=== PATIENT | female | born 1980 | race Caucasian/White ===

== ENCOUNTER 2016-10-30 18:04 | Emergency (ER) | payer MEDICAID ==
[~2016-10-30] VITALS: Ht 162.6 cm; Wt 73.8 kg
[2016-10-30 18:19] VITALS: BP 109/77
[2016-10-30] MEDS ORDERED: FLUORESCEIN OPHTHALMIC 1 MG STRIP ONE (18:46)
[2016-10-30] MEDS ORDERED: PROPARACAINE OPHTH 0.5%, 15ML ONE (18:46)
[2016-10-30] MEDS ORDERED: FLUORESCEIN OPHTHALMIC 1 MG STRIP RIGHTEYE ONE (19:00)
[2016-10-30] MEDS ORDERED: PROPARACAINE OPHTH 0.5%, 15ML RIGHTEYE ONE (19:00)
== END 2016-10-30 19:29 | disposition home or self-care (01) ==
LOC: ED 19:23
DX: H10.021 Other mucopurulent conjunctivitis, right eye (principal); H57.11 Ocular pain, right eye; F17.200 Nicotine dependence, unspecified, uncomplicated
CPT/HCPCS: 99283

== ENCOUNTER 2016-10-31 18:44 | Emergency (ER) | payer MEDICAID ==
[~2016-10-31] VITALS: Ht 160 cm; Wt 73.1 kg
[2016-10-31 18:52] VITALS: BP 120/83
== END 2016-10-31 19:35 | disposition left against medical advice (07) ==
LOC: ED 19:29
DX: Z20.2 Contact with and (suspected) exposure to infections with a predominantly sexual mode of transmission (principal)
CPT/HCPCS: 99281

== ENCOUNTER 2016-11-23 13:38 | Emergency (ER) | payer MEDICAID ==
[~2016-11-23] VITALS: Ht 162.6 cm; Wt 74.0 kg
[2016-11-23 13:40] VITALS: BP 129/89
== END 2016-11-23 15:23 | disposition home or self-care (01) ==
LOC: ED 15:08
DX: Z02.2 Encounter for examination for admission to residential institution (principal)
CPT/HCPCS: 99281

== ENCOUNTER 2019-05-13 15:37 | Emergency (ER) | payer MEDICAID ==
[~2019-05-13] VITALS: Ht 162.6 cm; Wt 76.6 kg
[2019-05-13 15:46] VITALS: BP 128/80
[2019-05-13] MEDS ORDERED: AZITHROMYCIN 500 MG TABLET PO ONE (16:30)
[2019-05-13] MEDS ORDERED: CEFTRIAXONE 250 MG IM ONE (16:30)
--- NOTE | 2019-05-13 18:17 | NUR ---
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
[2019-05-13] MEDS ORDERED: CEFTRIAXONE 250 MG ONE (19:42)
[2019-05-13] MEDS ORDERED: AZITHROMYCIN 250 MG TABLET ONE (19:43)
--- NOTE | 2019-05-13 19:51 | NUR ---
Pt ambulatory to restroom for urine sample.
--- NOTE | 2019-05-13 20:04 | NUR ---
Pt medicated per APR. Urine sent to lab.
--- NOTE | 2019-05-13 20:06 | NUR ---
Pt d/c'd to home care. Pt alert, oriented, and in NAD. Pt educated on prescription, OTC meds, follow-up, home care, and S/Sx to return. Pt VU. Pt ambulated out of ER.
--- NOTE | 2019-05-16 11:46 | NUR ---
THROUGHPUT: TRIED CALLING PT REGARDING TEST RESULTS. PER PERSON WHO ANSWERED, WRONG NUMBER.
== END 2019-05-13 20:24 | disposition home or self-care (01) ==
LOC: ED 20:05
DX: A74.9 Chlamydial infection, unspecified (principal); F17.210 Nicotine dependence, cigarettes, uncomplicated; A54.9 Gonococcal infection, unspecified; K08.89 Other specified disorders of teeth and supporting structures
CPT/HCPCS: 87491; 87591; 96372; 99283; J0696